=== PATIENT | female | born 1975 | race Caucasian/White ===

== ENCOUNTER 2024-11-11 10:43 | Inpatient (IN) | payer OTHER ==
[2024-11-11] MEDS ORDERED: Acetaminophen 500 MG TAB PO PRN (17:10)
[2024-11-11] MEDS ORDERED: Calcium Carbonate 500 MG ChewTAB PO PRN (17:15)
[2024-11-11] MEDS: HYDROcodone/Acetaminophen 5/325 mg Tablet PO PRN (17:37)
[2024-11-11 18:33] VITALS: BMI 20.1
[2024-11-11] MEDS: Famotidine 20 MG TAB PO SCH (21:03)
[2024-11-11] MEDS: Enoxaparin 40 MG (0.4 mL) SYRINGE SC SCH (21:04)
[2024-11-12 05:14] LABS: Hematocrit 33.7 % (36.0-47.0); Hemoglobin 11.7 g/dL (12.0-16.0); MDiff Complete? YES; Mean Corpuscular Hemoglobin 27.9 pg (27.0-31.0); Mean Corpuscular Volume 80.3 fl (78.0-98.0); Platelet Adequacy Comment Appears Adequate; Platelet Count 181 10x3/uL (130-400); Red Blood Cell (RBC) Count 4.20 mill/uL (4.20-5.40); White Blood Cell (WBC) Count 5.8 10x3/uL (4.8-10.8)
[2024-11-12 05:25] LABS: ALT (SGPT) 52 U/L (Less than 34); AST (SGOT) 74 U/L (11-34); Albumin 3.4 g/dL (3.1-4.5); Alkaline Phosphatase 61 U/L (40-110); Anion Gap 15 mmol/L (10-20); BUN (Urea Nitrogen) 18 mg/dL (7.0-18.7); Bilirubin, Total 0.5 mg/dL (0.3-1.2); Calc. Creatinine Clearance 78 mL/min (70-130); Calcium 9.0 mg/dL (7.8-10.44); Carbon Dioxide 26 mmol/L (22-29); Chloride 105 mmol/L (98-107); Globulin 2.6 g/dL (2.4-3.5); Glucose 85 mg/dL (70-105); Potassium 4.8 mmol/L (3.5-5.1); Sodium 141 mmol/L (136-145)
[2024-11-12] MEDS: Cyanocobalamin (Vitamin B-12) 1,000 MCG TAB PO SCH (10:20)
[2024-11-12] MEDS: Cholecalciferol 1,000 UNITS (25 MCG) TAB PO SCH (10:20)
[2024-11-12] MEDS: Multivitamin W/ Minerals 1 TAB PO SCH (10:20)
[2024-11-12 11:14] VITALS: BMI 20.1
[2024-11-12] MEDS: Enoxaparin 40 MG (0.4 mL) SYRINGE SC SCH (21:46)
[2024-11-12] MEDS: [UNRECOGNIZED DRUG - OTHER] PO SCH (21:47)
[2024-11-13] MEDS: [UNRECOGNIZED DRUG - OTHER] PO SCH (09:34)
[2024-11-13] MEDS: Cyanocobalamin (Vitamin B-12) 1,000 MCG TAB PO SCH (09:34)
[2024-11-13] MEDS: ZINC PO SCH (09:35)
[2024-11-13] MEDS: [UNRECOGNIZED DRUG - OTHER] PO SCH (09:35)
[2024-11-14] MEDS: Ibuprofen 200 MG TAB PO PRN (08:08)
[2024-11-14] MEDS: Senokot S 8.6-50 MG TAB PO PRN (11:32)
[2024-11-15] MEDS: FIBER PO SCH ×2 (10:00)
[2024-11-15] MEDS: [UNRECOGNIZED DRUG - OTHER] PO SCH (10:00)
[2024-11-15] MEDS: VITAMIN C 250 MG PO SCH ×2 (10:00)
[2024-11-15] MEDS: GUMMY PO SCH ×4 (10:00)
[2024-11-15] MEDS: ZINC PO SCH ×2 (10:00)
[2024-11-15] MEDS: ASCORBIC ACID 500 MG PO SCH ×2 (10:00→20:18)
[2024-11-15] MEDS: [UNRECOGNIZED DRUG - OTHER] PO SCH ×2 (10:00)
[2024-11-15] MEDS: [UNRECOGNIZED DRUG - OTHER] PO SCH ×2 (10:00→20:18)
[2024-11-15] MEDS: FIBER SUPPLEMENT PO SCH (19:55)
[2024-11-19] MEDS: Ibuprofen 200 MG TAB PO PRN (20:58)
[2024-11-20 18:52] VITALS: TEMP 97.6
[2024-11-21 05:13] VITALS: BP 99/58
[2024-11-21 05:24] LABS: ALT (SGPT) 16 U/L (Less than 34); AST (SGOT) 20 U/L (11-34); Albumin 3.4 g/dL (3.1-4.5); Alkaline Phosphatase 91 U/L (40-110); Anion Gap 11 mmol/L (10-20); BUN (Urea Nitrogen) 12 mg/dL (7.0-18.7); Bilirubin, Total 0.6 mg/dL (0.3-1.2); Calc. Creatinine Clearance 91 mL/min (70-130); Calcium 8.9 mg/dL (7.8-10.44); Carbon Dioxide 28 mmol/L (22-29); Chloride 108 mmol/L (98-107); Globulin 2.3 g/dL (2.4-3.5); Glucose 81 mg/dL (70-105); Potassium 4.3 mmol/L (3.5-5.1); Sodium 143 mmol/L (136-145)
[2024-11-21 05:53] LABS: #Basophils 0.0 thou/uL (0.0-0.2); #Eosinophils 0.3 thou/uL (0.0-0.7); #Lymphocytes 1.7 thou/uL (1.20-3.40); #Monocytes 0.4 thou/uL (0.11-0.59); #Neutrophils 3.3 thou/uL (1.40-6.50); %Basophils 0.7 % (0.0-1.0); %Eosinophils 4.7 % (0.0-10.0); %Lymphocytes 29.9 % (21.0-51.0); %Monocytes 7.7 % (0.0-10.0); %Neutrophils 57.0 % (42.0-75.0); Hematocrit 32.6 % (36.0-47.0); Hemoglobin 11.4 g/dL (12.0-16.0); Mean Corpuscular Hemoglobin 27.8 pg (27.0-31.0); Mean Corpuscular Volume 79.5 fl (78.0-98.0); Platelet Count 228 10x3/uL (130-400); Red Blood Cell (RBC) Count 4.10 mill/uL (4.20-5.40); White Blood Cell (WBC) Count 5.7 10x3/uL (4.8-10.8)
== END 2024-11-21 11:48 | disposition home health service (06) | DRG 561 ==
LOC: BURMED 16:25
PROVIDERS: ADMIT Family Medicine; ATTEND Nurse Practitioner
PROC: F07Z5ZZ Bed Mobility Treatment (ICD-10-PCS; principal; 2024-11-12)
PROC: F08Z0ZZ Bathing/Showering Techniques Treatment (ICD-10-PCS; 2024-11-12)
DX: S72.22XD Displaced subtrochanteric fracture of left femur, subsequent encounter for closed fracture with routine healing (principal); Z98.890 Other specified postprocedural states; Z87.81 Personal history of (healed) traumatic fracture; Z79.899 Other long term (current) drug therapy
CPT/HCPCS: 36415; 80053; 85025; J1650